=== PATIENT | female | born 1935 | race Caucasian/White ===

== ENCOUNTER → 2023-03-02 | Outpatient (CLI) | payer MEDICARE, SELFPAY ==
[2023-03-02 13:48] LABS: BUN 21 mg/dL (7-18); BUN/Creat Ratio 19.1 RATIO (10-20); Calcium,Total 9.6 mg/dL (8.5-10.1); Chloride 102 mmol/L (98-107); EST Glomerular Filtration Rate 50 mL/min (>60); Est Glom Filt Rate - Afr Amer 60 mL/min (>60); Glucose 117 mg/dL (74-106); Magnesium 1.9 mg/dL (1.6-2.6); Phosphorus 2.6 mg/dL (2.5-4.9); Potassium 3.6 mmol/L (3.5-5.1); Sodium Level 135 mmol/L (136-145)
== END | disposition home or self-care (01) ==
LOC: POLAB3 11:51
PROVIDERS: PCP Nurse Practitioner Adult Health; Visit Provider Internal Medicine Nephrology
DX: N18.32 Chronic kidney disease, stage 3b (principal)
CPT/HCPCS: 36415; 80069; 83735

== ENCOUNTER → 2024-02-07 | Outpatient (CLI) | payer MEDICARE, SELFPAY ==
[2024-02-07 10:37] LABS: Albumin, Serum 3.8 g/dL (3.2-5.0); BUN 19 mg/dL (7-18); BUN/Creat Ratio 17.9 RATIO (10-20); Calcium,Total 9.7 mg/dL (8.5-10.1); Chloride 104 mmol/L (98-107); Creatinine, Serum 1.06 mg/dL (0.55-1.02); EST Glomerular Filtration Rate 52 mL/min (>60); Est Glom Filt Rate - Afr Amer 63 mL/min (>60); Glucose 177 mg/dL (74-106); Phosphorus 2.3 mg/dL (2.5-4.9); Sodium Level 140 mmol/L (136-145)
== END | disposition home or self-care (01) ==
LOC: POLAB3 10:10
PROVIDERS: PCP Nurse Practitioner Adult Health; Visit Provider Internal Medicine Nephrology
DX: N18.32 Chronic kidney disease, stage 3b (principal)
CPT/HCPCS: 36415; 80069

== ENCOUNTER → 2024-02-07 | Outpatient (CLI) | payer MEDICARE, SELFPAY ==
--- NOTE | 2024-02-07 11:41 | ECHOD_ITS ---
Reason For Study: COMPLETE HEART BLOCK Procedure This was a 2D Doppler, Color Flow transthoracic echocardiogram. Exam performed in department. Left Ventricle Normal LV size. Left ventricular systolic function is normal. The left ventricular ejection fraction is 60 %. No regional wall motion abnormalities noted. Right Ventricle Normal RV size. ICD or pacer leads identified within the right ventricle. Normal systolic function. Atria Normal left atrium. Normal right atrium. Mitral Valve Normal mitral valve. Mild (1+) eccentric mitral valve insufficiency. Tricuspid Valve Normal tricuspid valve. Mild (1+) tricuspid valve insufficiency. Pulmonary artery systolic pressure is 43 mmHg. Aortic Valve Trisinus/trileaflet aortic valve. Pulmonic Valve Normal pulmonic valve. Great Vessels Normal aortic root. The pulmonary artery is normal size. Normal inferior vena cava. Pericardium/Pleural No pericardial effusion. MMode/2D Measurements & Calculations LVIDd: 3.7 cm IVSd: 1.4 cm LVOT diam: 1.9 cm LVIDs: 2.5 cm LVPWd: 1.1 cm LVOT area: 2.8 cm2 RVDd: 2.8 cm FS: 32.9 % asc Aorta Diam: 2.7 cm LAV(MOD-bp): 36.8 ml LVAd ap4: 13.5 cm2 LAV(MOD-bp) Indexed: 23.0 ml/m2 LVLd ap4: 6.0 cm LAV(MOD-sp2): 34.8 ml EDV(MOD-sp4): 24.8 ml LAV(MOD-sp4): 36.2 ml EDV(sp4-el): 25.9 ml LVAs ap4: 6.3 cm2 LVLs ap4: 4.8 cm ESV(MOD-sp4): 7.6 ml ESV(sp4-el): 7.0 ml EF(MOD-sp4): 69.4 % EF(sp4-el): 73.0 % LVAd ap2: 12.4 cm2 SV(MOD-sp4): 17.2 ml SV(MOD-sp2): 15.4 ml LVLd ap2: 5.7 cm EDV(MOD-sp2): 22.2 ml EDV(sp2-el): 22.8 ml LVAs ap2: 5.9 cm2 LVLs ap2: 4.9 cm ESV(MOD-sp2): 6.8 ml ESV(sp2-el): 6.1 ml EF(MOD-sp2): 69.2 % SV(sp4-el): 18.9 ml Ao sinus diam: 2.[address] Junction: 2.0 cm LA dimension(2D): 3.5 cm LA A4 area: 14.9 cm2 RA A4 area: 11.3 cm2 TAPSE: 2.2 cm Time Measurements MV dec time: 0.21 sec Doppler Measurements & Calculations MV E max hector: 108.3 cm/sec Lat Peak E' Hector: 6.7 cm/sec Med Peak E' Hector: 5.1 cm/sec MV A max hector: 125.4 cm/sec E/E' lat: 16.2 E/E' med: 21.1 MV E/A: 0.86 MV V2 max: 145.4 cm/sec MV dec slope: 519.6 cm/sec2 Ao V2 max: 154.7 cm/sec MV max P.5 mmHg Ao max P.6 mmHg MV V2 mean: 97.1 cm/sec Ao V2 mean: 102.8 cm/sec MV mean P.2 mmHg Ao mean P.8 mmHg MV V2 VTI: 34.9 cm Ao V2 VTI: 29.3 cm MVA(VTI): 1.8 cm2 AV (velocity ratio): 0.77 ALBERT(I,D): 2.1 cm2 ALBERT(V,D): 2.0 cm2 LV V1 max: 114.7 cm/sec SV(LVOT): 62.4 ml PA V2 max: 131.5 cm/sec LV V1 max P.3 mmHg PA max PG (full): 2.3 mmHg LV V1 mean P.0 mmHg LV V1 mean: 83.5 cm/sec LV V1 VTI: 22.6 cm TR max hector: 314.6 cm/sec TR max P.6 mmHg ECHO/Echo Complete Interpretation Summary Normal LV size. Left ventricular systolic function is normal. The left ventricular ejection fraction is 60 %. ICD or pacer leads identified within the right ventricle. Mild (1+) eccentric mitral valve insufficiency. Pulmonary artery systolic pressure is 43 mmHg. Ordering Physician: Desmond Ocampo Referring Physician: Desmond Ocampo MD Performed By: Gina Copeland RDCS
--- NOTE | 2024-02-07 11:41 | CDU_ITS ---
Reason For Study: Carotid Bruit Rt. Velocities/BP Lt. Velocities/BP Prox CCA 77.3/12.4 cm/sec. Prox CCA 89.1/11.8 cm/sec. Mid CCA 76.2/14.6 cm/sec. Mid CCA 94.1/13.0 cm/sec. Dist CCA 72.9/15.7 cm/sec. Dist CCA 81.8/13.0 cm/sec. Prox ICA 146.7/17.0 cm/sec. Prox ICA 97.4/15.1 cm/sec. Mid ICA 157.6/17.0 cm/sec. Mid ICA 63.9/12.5 cm/sec. Dist ICA 82.3/16.8 cm/sec. Dist ICA 61.6/12.1 cm/sec. Rt. ICA/CCA = 2.1. Lt. ICA/CCA = 1.0. Prox ECA 207.9/10.7 cm/sec. Prox ECA 163.1/16.0 cm/sec. Rt. Vert. 50.9/13.5 cm/sec. Lt. Vert. 54.8/6.9 cm/sec. Right Extracranial There is heterogeneous, irregular atherosclerotic plaque noted in the right common carotid artery. There is heterogeneous, irregular atherosclerotic plaque noted in the right internal carotid artery. There is heterogeneous, irregular atherosclerotic plaque noted in the right external carotid artery. Antegrade flow is noted in the right vertebral artery. Left Extracranial There is heterogeneous, irregular atherosclerotic plaque noted in the left common carotid artery. There is heterogeneous, irregular atherosclerotic plaque noted in the left internal carotid artery. The distal left internal carotid artery is not well visualized. The left internal carotid artery is very tortuous. There is heterogeneous, irregular atherosclerotic plaque noted in the left external carotid artery. Antegrade flow is noted in the left vertebral artery. Procedure Carotid Duplex [id number]. This is a Carotid Duplex examination using B-mode, color flow and specral Doppler. The exam was diagnostic. Exam performed in department. VL/Carotid Duplex Ultrasound Interpretation Summary Moderate (50-69%) stenosis right extracranial internal carotid. Mild (<50%) stenosis left extracranial internal carotid. Patent and antegrade vertebrals bilaterally. Ordering Physician: Desmond Ocampo Referring Physician: La Dolan Performed By: Samuel Solis RVT
== END | disposition home or self-care (01) ==
LOC: CVS 11:39
PROVIDERS: PCP Nurse Practitioner Adult Health; Referring Provider Internal Medicine Cardiovascular Disease; Visit Provider Internal Medicine Cardiovascular Disease
DX: R09.89 Other specified symptoms and signs involving the circulatory and respiratory systems (principal); I44.2 Atrioventricular block, complete; N18.32 Chronic kidney disease, stage 3b
CPT/HCPCS: 36415; 80069; 93306; 93880